=== PATIENT | male | born 1935 | race Caucasian/White ===

== ENCOUNTER 2017-04-11 10:02 | Emergency (ER) | payer MEDICARE, BC ==
[2017-04-11] MEDS ORDERED: MUPIROCIN 22 APPL TUBE TP ONE ×2 (11:06→11:12)
--- NOTE | 2017-04-11 11:10 | ERNOTE ---
Lower Extremity HPI - Narrative Date of Service: 04/11/17 - General Lower Extremities Pain: leg: left Time Seen by Provider: 04/11/17 10:59 Source: patient, RN notes reviewed, old records Exam Limitations: no limitations - Immun/Allergies/Home Medications Immunizations: IMMUNIZATION HX Immunizations Up to Date Yes History of Influenza Vaccine Yes Hx Pneumococcal Vaccination More Information Required Allergies/Adverse Reactions: Allergies Allergy/AdvReac Type Severity Reaction Status Date / Time Antihistamines - Alkylamine Allergy Unknown Verified 04/11/17 10:54 metformin Allergy Unknown Verified 04/11/17 10:54 phentermine [Phentermine] Allergy Unknown Verified 04/11/17 10:54 Sulfa (Sulfonamide Allergy Unknown Verified 04/11/17 10:54 Antibiotics) [Sulfa(Sulfonamide Antibiotics)] Home Medications: HOME MEDICATIONS Albuterol Sulfate [Albuterol Sulfate 2.5 MG/0.5ML] 1 vial IH Q6H PRN 11/08/15 [ Last Taken Unknown] Alprostadil [[place]] 1,000 mcg UR DAILY PRN 11/08/15 [Last Taken Unknown] Aspirin [Aspirin Enteric Coated] 81 mg PO DAILY 11/08/15 [Last Taken Unknown] Atorvastatin Calcium 40 mg PO HS 11/08/15 [Last Taken Unknown] Finasteride [Proscar] 5 mg PO DAILY 11/08/15 [Last Taken Unknown] Furosemide [Lasix] 40 mg PO DAILY 11/08/15 [Last Taken Unknown] Gabapentin 300 mg PO QID PRN 11/08/15 [Last Taken Unknown] Insulin Aspart Prot/Insuln Asp [Novolog Mix 70/30] 8 units SQ HS 11/08/15 [Last Taken Unknown] Insulin Aspart Prot/Insuln Asp [Novolog Mix 70/30] 20 units SQ BID@0700,1700 [Last Taken Unknown] Insulin Glargine,Hum.rec.anlog [Lantus] 36 unit SQ BID 11/08/15 [Last Taken Unknown] Levothyroxine Sodium [Synthroid] 125 mcg PO DAILY 11/08/15 [Last Taken Unknown] Metoprolol Tartrate [Lopressor] 50 mg PO BID 11/08/15 [Last Taken Unknown] Omeprazole [Prilosec] 20 mg PO BID 11/08/15 [Last Taken Unknown] Terazosin HCl 5 mg PO HS 11/08/15 [Last Taken Unknown] Umeclidinium [place] [Incruse Ellipta] 62.5 mcg IH DAILY 11/08/15 [Last Taken Unknown] Acetaminophen [Tylenol] 650 mg PO QID PRN #1 tablet 11/09/15 [Last Taken Unknown ] Calcium Carbonate/Vitamin D3 [Calcarb 600 With Vitamin D] 1 tab PO DAILY tablet 11/09/15 [Last Taken Unknown] Docusate Sodium [Colace] 100 mg PO DAILY capsule 11/09/15 [Last Taken Unknown] Glucagon,Human Recombinant [Glucagen] 1 mg IJ PRN PRN #0 vial 11/09/15 [Last Taken Unknown] Ipratropium [place] [Atrovent 0.06% Nasal [place]] 2 spray NS QID PRN #0 inhaler 11/09/15 [Last Taken Unknown] Meclizine HCl [Antivert] 25 mg PO Q4H PRN #1 tablet 11/09/15 [Last Taken Unknown ] Tiotropium [place] [Spiriva] 1 cap IH DAILY inhaler 11/09/15 [Last Taken Unknown] Cephalexin 500 mg PO QID 04/11/17 [Last Taken Unknown] Levofloxacin [Levaquin] 750 mg PO DAILY #10 tablet 04/11/17 [Last Taken Unknown] - History of Present Illness Narrative: 81 y/o male ambulatory to the ED for cellulitis of his left lower leg. He scrap[place] leg on [place] on 04/04/17. He was seen in the walk-in clinic 2 days ago and started on cephalexin. The redness and swelling have increased since then, and the wound is now draining. He denies any fevers or chills. He reports that his blood glucose has been in the 200's, which is higher than usual for him. 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 Date (Duration): 04/04/17 Occurred: last week Location of Incident: other - [place] Method of Injury: Reports: fell Loss of Consciousness: Reports: no loss of consciousness Other Injuries: Reports: none Prior Treament: Reports: recently seen, similar symptoms before, currently on antibiotics Review of Systems - Review of Systems Constitutional: Absent: fever, chills, malaise EYE: Present: no symptoms reported ENT: Present: no symptoms reported Respiratory: Absent: shortness of breath, cough Cardiology: Present: edema. Absent: chest pain, syncope, claudication Gastrointestinal/Abdominal: Absent: nausea, vomiting Genitourinary: Present: no symptoms reported Musculoskeletal: Absent: joint pain, joint swelling Skin: Present: change in color. Absent: rash, lesions, lumps Neurological: Absent: headache, dizziness/light-headedness Endocrine: Present: no symptoms reported Hematologic/Lymphatic: Present: no symptoms reported Psych: Present: no symptoms reported - Patient's Past Medical History Patient History - Medical: Arthritis, Diabetes Type 2 Insulin Dependent, GERD, Headache, Hypothyroidism Patient History - Cardiac/Respiratory: Coronary Heart Disease, COPD, Deep Vein Thrombosis, Hypertension, Hyperlipidemia Patient History - Cancer: No Hx of Cancer Patient History - Surgical Procedures: Appendectomy, Coronary Bypass Surgery, T & A, Other Patient History - Other: None - Family History Mother Family History - Medical: History Unknown Father Family History - Medical: History Unknown - Social History Living Situations: home Abuse History: No History of abuse Psych History: No pertinent hx Smoking Status: Former smoker Alcohol Use: sober Drug Use: none - Immunizations Immunizations Up to Date: Yes Hx Pneumococcal Vaccination: More Information Required to Determine History of Influenza Vaccine: Yes Physical Exam - Physical Exam General Appearance: Present: wd/wn, alert, no apparent distress Respiratory: Present: no respiratory distress, normal breath sounds, no accessory muscle use, lungs clear Cardiovascular/Chest: Present: regular rate, rhythm, systolic murmur Extremity Exam: Present: normal range of motion, extremity edema - Left lower leg. Absent: joint redness, joint swelling Neurological Exam: Present: alert, oriented, normal mood/affect Skin Exam: Present: warm/dry, other - Abrasion to left lateral lower leg inflammed with purulent drainage present, severe surrounding erythema, hot to touch ED Progress - Results and Orders Patient's Lab Results:: I have reviewed the patient's lab results. - Vital Signs Patient's Vital Signs:: I have reviewed the patient's vital signs. Vital Signs: Vital Signs 04/11/17 10:47 Temperature 36.7 C Pulse Rate 64 Respiratory 18 Rate Blood Pressure 138/60 O2 Sat by Pulse 95 Oximetry - Progress/Reassessment Chief Complaint: Lower Extremity Pain/ Injury Progress:: Unchanged Plan - Plan Plan: Patient started on Levaquin - contacted Dr. Chase regarding f/u - patient is to see him tomorrow. Blood and wound cultures are pending Departure Clinical Impression: Cellulitis of left lower extremity without foot - Departure Disposition: Home Follow Up Needed Condition: Stable Instructions: Cellulitis, Adult, [id number] Additional Instructions: Wash wound twice a day with soap and water, apply mupirocin ointment and new dressing each time See Dr. Chase tomorrow afternoon Referrals: Qasim Butterfield MD [Primary Care Provider] - 04/12/17 3:00 am Prescriptions: Levofloxacin [Levaquin] 750 mg PO DAILY #10 tablet
[2017-04-11 11:21] LABS: Hematocrit 37.3 % (42.0-52.0); Hemoglobin 12.4 gm/dL (13.5-18.0); Mean Cell Volume 93.3 fl (78-100); Mean Corpuscular Hgb Conc 33.2 g/dl (32-36); Mean Platelet Volume 9.6 fl (6.0-9.5); Neutrophil # 4.2 K/mm3 (1.3-6.0); Neutrophil % 54.4 % (42-75.0); Platelet Count 200 K/mm3 (150-450); Red Cell Distribution Width 13.3 % (11.5-14.0); White Blood Count 7.7 K/mm3 (4.0-10.5)
[2017-04-11 11:35] LABS: Albumin * 3.6 gm/dl (3.4-5.0); BUN/Creatinine Ratio 13.1 (9.0-21.6); Bilirubin, Total 1.2 mg/dL (0.0-1.1); Ca. Corrected For Albumin 8.4 mg/dL (8.4-10.2); Calcium * 8.4 mg/dL (7.9-10.9); Carbon Dioxide 30.6 mmol/L (24-32.6); Potassium 4.6 mmol/L (3.4-4.6); Total Protein 6.9 gm/dL (6.2-8.2)
[2017-04-11] MEDS ORDERED: LEVOFLOXACIN 500 MG TABLET PO ONE (12:17)
[2017-04-11] MEDS ORDERED: LEVOFLOXACIN 250 MG TABLET ONE (12:28)
[2017-04-11] MEDS ORDERED: LEVOFLOXACIN 500 MG TABLET ONE (12:28)
[2017-04-11 13:19] VITALS: BP 135/61
== END 2017-04-11 12:40 | disposition home or self-care (01) ==
LOC: ER 10:02
DX: L03.116 Cellulitis of left lower limb (principal); E11.9 Type 2 diabetes mellitus without complications; Z79.4 Long term (current) use of insulin; J44.9 Chronic obstructive pulmonary disease, unspecified; E03.9 Hypothyroidism, unspecified; K21.9 Gastro-esophageal reflux disease without esophagitis; I10 Essential (primary) hypertension; Z86.718 Personal history of other venous thrombosis and embolism; Z87.891 Personal history of nicotine dependence